=== PATIENT | female | born 1975 | race African-American/Black ===

== ENCOUNTER 2017-10-27 21:24 | Emergency (ER) | payer SELFPAY ==
[2017-10-27 21:45] VITALS: BP 142/84
[2017-10-27] MEDS ORDERED: IBUPROFEN 800 MG TABLET PO ONE (23:02)
--- NOTE | 2017-10-27 23:02 | ER Document Report ---
HPI - HPI Pain Level: 5 Context: Patient is a 42-year-old female presents emergency department with a chief complaint of poison angelika. Patient states that she was with her son in the [place] a couple of days ago but developed poison angelika on her upper extremities. States she has not been taking anything at home for it. Denies fevers or chills. - CONSTITUTIONAL Constitutional: DENIES: Fever, Chills - EENT EENT: DENIES: Sore Throat, Ear Pain, Eye problems - NEURO Neurology: DENIES: Headache, Weakness, Vision blurred, Dizzinesss / Vertigo - CARDIOVASCULAR Cardiovascular: DENIES: Chest pain - RESPIRATORY Respiratory: DENIES: Trouble Breathing, Coughing - GASTROINTESTINAL Gastrointestinal: DENIES: Abdominal Pain, Black / Bloody Stools - URINARY Urinary: DENIES: Dysuria, Urgency, Frequency - REPRODUCTIVE LMP: na - MUSCULOSKELETAL Musculoskeletal: DENIES: Extremity pain Past Medical History - Social History Smoking Status: Unknown if Ever Smoked Family History: Reviewed & Not Pertinent Patient has suicidal ideation: No Patient has homicidal ideation: No Renal/ Medical History: Denies: Hx Peritoneal Dialysis Vertical Provider Document - CONSTITUTIONAL Agree With Documented VS: Yes Notes: PHYSICAL EXAM GENERAL: Alert, interacts well. EXTREMITIES: Moves all 4 extremities spontaneously. No edema, radial and dorsalis pedis pulses 2/4 bilaterally. No cyanosis. NEUROLOGICAL: Alert and oriented x4. Normal speech. PSYCH: Normal affect, normal mood. SKIN: Warm, dry, normal turgor. Isolated areas of vesicles with serous fluid on erythematous base without any surrounding edema, induration, fluctuance - INFECTION CONTROL TRAVEL OUTSIDE OF THE [place] IN LAST 30 DAYS: No Course - Re-evaluation Re-evalutation: 10/27/17 23:01 Patient 42-year-old female is hemodynamically stable. Vital signs stable. Presentation is consistent with a contact dermatitis plant oils. No evidence of underlying cellulitis, secondary infection. Foqm-[id number]-[id number] management, and lotion, antihistamines for itching and Motrin for discomfort. She is requesting to go home with steroid cream. Discussed with her strict return precautions otherwise stable for discharge home - Vital Signs Vital signs: Temp Pulse Resp BP Pulse Ox 97.9 F 93 142/84 H 99 10/27/17 21:44 10/27/17 21:44 10/27/17 21:44 10/27/17 21:44 Discharge - Discharge Clinical Impression: Poison angelika Condition: Good Disposition: HOME, SELF-CARE Instructions: Poison Angelika ([facility]) Additional Instructions: You can utilize gxaj-[id number]-kakzqej calamine lotion which will dry the lesions, hydrocortisone cream which will help with itching and qhrh-[id number] Benadryl and other antihistamines such as Claritin and Abena to help with the itching. You can also take Motrin to help with the discomfort. Prescriptions: Hydrocortisone/Oatmeal/Aloe/E [Hydrocortisone 1% Cream] 28.4 gm TP BIDP PRN #1 cream.gm. PRN Reason: Forms: Elevated Blood Pressure
[2017-10-27] MEDS ORDERED: HYDROCORTISONE 1% CREAM 28.35 GM TP ONE (23:39)
[2017-10-27] MEDS ORDERED: HYDROCORTISONE 1% CREAM 28.35 GM ONE (23:47)
== END 2017-10-27 23:55 | disposition home or self-care (01) ==
LOC: ER 21:24
DX: L23.7 Allergic contact dermatitis due to plants, except food (principal)
CPT/HCPCS: 99282; J3490

== ENCOUNTER 2017-11-29 20:42 | Emergency (ER) | payer OTHER ==
[2017-11-29 20:49] VITALS: BP 124/79
[2017-11-29] MEDS ORDERED: ONDANSETRON ODT 4 MG TAB (6 TAB/ER DISP) PO PRN (21:20)
--- NOTE | 2017-11-29 21:22 | ER Document Report ---
ED General - General Chief Complaint: Vomiting/Diarrhea Stated Complaint: STOMACH PAIN Time Seen by Provider: 11/29/17 21:09 TRAVEL OUTSIDE OF THE [place] IN LAST 30 DAYS: No - HPI Patient complains to provider of: Nausea vomiting diarrhea Notes: Patient coming in for nausea vomiting diarrhea 2 hours after eating [employer]. Patient denies any abdominal pain. Patient resting comfortably upon my evaluation denies fevers chills denies any other issues. - Related Data Allergies/Adverse Reactions: No Known Allergies Allergy (Unverified 10/27/17 21:27) Past Medical History - Social History Smoking Status: Unknown if Ever Smoked Family History: Reviewed & Not Pertinent Renal/ Medical History: Denies: Hx Peritoneal Dialysis Review of Systems - Review of Systems Constitutional: No symptoms reported EENT: No symptoms reported Cardiovascular: No symptoms reported Respiratory: No symptoms reported Gastrointestinal: Diarrhea, Nausea, Vomiting Genitourinary: No symptoms reported Female Genitourinary: No symptoms reported Musculoskeletal: No symptoms reported Skin: No symptoms reported Hematologic/Lymphatic: No symptoms reported Neurological/Psychological: No symptoms reported Physical Exam - Vital signs Vitals: Temp Pulse Resp BP Pulse Ox 98.6 F 80 16 124/79 98 11/29/17 20:47 11/29/17 20:47 11/29/17 20:47 11/29/17 20:47 11/29/17 20:47 Interpretation: Normal - General General appearance: Appears well, Alert - HEENT Head: Normocephalic, Atraumatic Eyes: Normal Pupils: PERRL - Respiratory Respiratory status: No respiratory distress Chest status: Nontender Breath sounds: Normal Chest palpation: Normal - Cardiovascular Rhythm: Regular Heart sounds: Normal auscultation Murmur: No - Abdominal Inspection: Normal Distension: No distension Bowel sounds: Normal Tenderness: Nontender Organomegaly: No organomegaly - Back Back: Normal, Nontender - Extremities General upper extremity: Normal inspection, Nontender, Normal color, Normal ROM , Normal temperature General lower extremity: Normal inspection, Nontender, Normal color, Normal ROM , Normal temperature, Normal weight bearing. No: Kumar's sign - Neurological Neuro grossly intact: Yes Cognition: Normal Orientation: AAOx4 Bypro Coma Scale Eye Opening: Spontaneous Nicolás Coma Scale Verbal: Oriented Bypro Coma Scale Motor: Obeys Commands Nicolás Coma Scale Total: 15 Speech: Normal Motor strength normal: LUE, RUE, LLE, RLE Sensory: Normal - Psychological Associated symptoms: Normal affect, Normal mood - Skin Skin Temperature: Warm Skin Moisture: Dry Skin Color: Normal Course - Re-evaluation Re-evalutation: 11/29/17 23:22 The patient presents with Nausea vomiting diarrhea without signs of peritonitis or other life-threatening or serious etiology. The patient appears stable for discharge and has been instructed to return immediately if the symptoms worsen in any way, or in 8-12hr if not improved for re-evaluation. The patient has been instructed to return if the symptoms worsen or change in any way. - Vital Signs Vital signs: Temp Pulse Resp BP Pulse Ox 98.6 F 80 16 124/79 98 11/29/17 20:47 11/29/17 20:47 11/29/17 20:47 11/29/17 20:47 11/29/17 20:47 Discharge - Discharge Clinical Impression: Nausea vomiting and diarrhea Condition: Good Disposition: HOME, SELF-CARE Instructions: Gastroenteritis (adult) ([facility]ENDING [facility] TO [facility]) Additional Instructions: [place] diet for the next few days. Please make sure you are drinking plenty water. He may go back to work tomorrow. Take medications as prescribed. Prescriptions: Ondansetron [Zofran Odt] 4 mg PO Q6 PRN #30 tab.rapdis PRN Reason: For Nausea/Vomiting Promethazine HCl [Phenergan 25 mg Tablet] 25 mg PO Q6 #30 tablet Forms: Return to Work Referrals: NURY MURRAY MD [Primary Care Provider] - Follow up as needed
== END 2017-11-29 21:32 | disposition home or self-care (01) ==
LOC: ER 20:42
DX: R11.2 Nausea with vomiting, unspecified (principal); R19.7 Diarrhea, unspecified
CPT/HCPCS: 99283